=== PATIENT | male | born 1990 | race Two or more races ===

== ENCOUNTER 2019-11-01 07:12 | Inpatient (IN) | payer MEDICAID ==
[~2019-11-01] VITALS: Ht 177.8 cm; Wt 127.4 kg
[2019-11-01] MEDS ORDERED: SODIUM CHLORIDE 0.9% 1,000 ML IV ONE (07:43)
[2019-11-01] MEDS ORDERED: PROMETHAZINE HCL 25 MG/ML 1ML IV PRN (07:45)
[2019-11-01 08:09] LABS: Basophils # (auto) 0.1 10 ^3/uL (0-0.2); Basophils % (auto) 0.9 % (0.0-2.0); Eosinophils # (auto) 0.4 10 ^3/uL (0-0.8); Eosinophils % (auto) 4.2 % (0.0-7.0); Hematocrit 43.8 % (41.0-53.0); Hemoglobin 15.2 g/dL (13.5-17.5); Lymphocytes # (auto) 2.8 10 ^3/uL (0.4-5.4); Lymphocytes % (auto) 32.9 % (10.0-50.0); Mean Corpuscular Hemoglobin 29.2 pg (28.0-32.0); Mean Corpuscular Hgb Conc. 34.7 g/dL (32.0-36.0); Mean Corpuscular Volume 84.1 fL (80.0-100.0); Monocytes # (auto) 0.6 10 ^3/uL (0-1.3); Monocytes % (auto) 7.5 % (0.0-12.0); Neutrophils # (auto) 4.7 10 ^3/uL (1.6-8.6); Neutrophils % (auto) 54.5 % (37.0-80.0); Nucleated Red Blood Cells % 0.4 %; Platelet Count (auto) 261 10^3/uL (140-450); Red Blood Cells 5.21 10^6/uL (4.5-5.90); Red Cell Distribution Width 13.8 % (11.8-14.3); White Blood Cell 8.6 10^3/uL (4.4-10.8)
[2019-11-01 08:23] LABS: Albumin 3.5 g/dL (3.4-5.0); Calcium 8.3 mg/dL (8.5-10.1); Magnesium 2.5 mg/dL (1.6-2.6); Potassium 4.2 mmol/L (3.5-5.1)
[2019-11-01 08:26] LABS: BUN/Creatinine Ratio 17.9; Bilirubin, Total 0.4 mg/dL (0.2-1.0); Total Protein 7.5 g/dL (6.4-8.2)
[2019-11-01 09:18] LABS: Urine Bacteria FEW /hpf (None Seen); Urine Blood Negative /uL (Negative); Urine Specific Gravity 1.019 (1.001-1.035); Urine WBC <1 /hpf (0 - 3)
[2019-11-01 09:35] LABS: Alcohol, Urine < 3.0 mg/dL (0-5); Amphetamine Screen, Urine NEGATIVE (NEGATIVE); Barbiturate Scree,Urine NEGATIVE (NEGATIVE); Benzodiazephine Screen, Urine NEGATIVE (NEGATIVE); Cannabinoid Screen, Urine POSITIVE (NEGATIVE); Cocaine Screen, Urine NEGATIVE (NEGATIVE); Opiate Scree,Urine NEGATIVE (NEGATIVE); Phencyclidine Screen, Urine NEGATIVE (NEGATIVE)
[2019-11-01] MEDS: LACTATED RINGER'S 1,000 ML IV SCH (16:29)
--- NOTE | 2019-11-01 17:30 | NUR ---
[facility] admit from [facility],PAT[facility] admitted to [facility] after SBAR received. Patient oriented to Tracy Shin, primary RN, unit, room, bed, and unit policies regarding patient care and visiting hours. Patient weighed by bedscale and encouraged to call if they need something. All questions and concerns addressed, patient verbalized understanding. IV fluids continued as ordered. No s/s of acute distress or sob noted. VSS. Patient's at bedside. Will cont to monitor
[2019-11-01] MEDS: ONDANSETRON HCL 4 MG/2 ML VIAL IV PRN (17:59)
[2019-11-01] MEDS: MORPHINE SULF INJ 2 MG/ML SYRINGE 1ML IV PRN (17:59)
[2019-11-01 18:00] VITALS: BP 133/69
--- NOTE | 2019-11-01 19:05 | NUR ---
Patient care endorsed endorsed care to Trisha higgins. Patient resting comfortably in bed denies pain at this time. Call light within reach. Patient's at bedside
--- NOTE | 2019-11-01 19:38 | NUR ---
Opening Shift Note Assumed care of patient, awake and alert, resting comfortably in bed, family at bedside. No S/S of distress/SOB or pain. Instructed on POC and to call for assist PRN, will continue to monitor for changes Q1hr and PRN.
[2019-11-01] MEDS: PANTOPRAZOLE 40 MG/10 ML VIAL INJ IV SCH (21:46)
--- NOTE | 2019-11-01 21:47 | NUR ---
PAIN ASSESSMENT/FAMILY AT BEDSIDE ASKED PATIENT WHAT HIS PAIN LEVEL IS, PATIENT REPORTED PAIN AT A 6/10, HE DID NOT REQUEST ANY PAIN MEDICATION. PATIENT STATED TOLERABLE PAIN LEVEL IS 'ABOUT A 9 OR 10 OUT OF 10'. PATIENT EDUCATED REGARDING PAIN MANAGEMENT AND TO NOTIFY NURSE IF PAIN INCREASES. WILL CONTINUE TO MONITOR AND ASSESS FOR PAIN. PATIENT FAMILY AT BEDSIDE, INFORMED PATIENT AND VISITORS REGARDING VISITING HOURS, VISITOR VERBALIZED UNDERSTANDING.
[2019-11-01 21:52] VITALS: BP 124/76
[2019-11-02] MEDS: LACTATED RINGER'S 1,000 ML IV SCH ×3 (02:02→22:00)
[2019-11-02 04:57] LABS: Basophils # (auto) 0.1 10 ^3/uL (0-0.2); Eosinophils # (auto) 0.4 10 ^3/uL (0-0.8); Eosinophils % (auto) 4.4 % (0.0-7.0); Hematocrit 42.9 % (41.0-53.0); Lymphocytes # (auto) 3.6 10 ^3/uL (0.4-5.4); Lymphocytes % (auto) 38.2 % (10.0-50.0); Mean Corpuscular Hemoglobin 29.3 pg (28.0-32.0); Mean Corpuscular Hgb Conc. 34.8 g/dL (32.0-36.0); Mean Corpuscular Volume 84.1 fL (80.0-100.0); Monocytes # (auto) 0.6 10 ^3/uL (0-1.3); Monocytes % (auto) 6.2 % (0.0-12.0); Neutrophils # (auto) 4.8 10 ^3/uL (1.6-8.6); Neutrophils % (auto) 50.2 % (37.0-80.0); Nucleated Red Blood Cells % 0.2 %; Platelet Count (auto) 259 10^3/uL (140-450); Red Blood Cells 5.11 10^6/uL (4.5-5.90); Red Cell Distribution Width 13.8 % (11.8-14.3); White Blood Cell 9.6 10^3/uL (4.4-10.8)
[2019-11-02] MEDS: MORPHINE SULF INJ 2 MG/ML SYRINGE 1ML IV PRN ×2 (05:04→16:59)
[2019-11-02] MEDS: ONDANSETRON HCL 4 MG/2 ML VIAL IV PRN (05:04)
[2019-11-02 05:16] LABS: Albumin 3.4 g/dL (3.4-5.0); Calcium 8.5 mg/dL (8.5-10.1)
[2019-11-02 05:20] VITALS: BP 125/69
[2019-11-02 05:21] LABS: BUN/Creatinine Ratio 12.5; Bilirubin, Total 0.5 mg/dL (0.2-1.0); Total Protein 6.8 g/dL (6.4-8.2)
[2019-11-02 08:44] VITALS: BP 114/52
--- NOTE | 2019-11-02 09:00 | NUR ---
ROUNDS DONE PATIENT RESTING IN BED.
[2019-11-02] MEDS: PANTOPRAZOLE 40 MG/10 ML VIAL INJ IV SCH ×2 (09:44→21:59)
[2019-11-02] MEDS ORDERED: traMADol HCL 50 MG TAB PO PRN (10:30)
--- NOTE | 2019-11-02 10:30 | NUR ---
DR SINGH WENT TO TALK TO PATIENT, DR SINGH EXPLAINED PLAN OF CARE, PATIENT WILL HAVE CLEAR LIQUIDS NAD NPO AFTER MIDNIGHT FOR EXAM.
[2019-11-02 11:37] LABS: INR 1.01 (0.9-1.15)
--- NOTE | 2019-11-02 12:27 | NUR ---
PATIENT ALERT AND ORIENTED, FAMILY AT BEDSIDE, PLAN OF CARE EXPLAINED TO PATIENT. PATIENT DENIES PAIN OR DISCOMFORT.
[2019-11-02 13:00] VITALS: BP 141/74
--- NOTE | 2019-11-02 13:56 | NUR ---
ROUNDS PERFORMED. CHECKED IV
[2019-11-02 16:58] VITALS: BP 146/79
--- NOTE | 2019-11-02 18:02 | NUR ---
Medicated patient for pain. He is sitting up on a chair, no sob noted.
[2019-11-02 22:00] VITALS: BP 136/71
--- NOTE | 2019-11-03 02:39 | NUR ---
RESTING WITH EYES CLOSED;RESP EVEN UNLAB WITH CALL LIGHT IN REACH.
[2019-11-03 05:51] VITALS: BP 112/71
[2019-11-03] MEDS: ONDANSETRON HCL 4 MG/2 ML VIAL IV PRN (06:08)
--- NOTE | 2019-11-03 07:30 | NUR ---
Opening Shift Note Assumed care of patient, who is alert and oriented x4. No S/S of distress/SOB or pain. PIV to left AC is patent and intact. Bed is low, locked with 2x side rails up. Call light is within reach. Instructed on POC and to call for assist PRN, will continue to monitor for changes Q1hr and PRN.
[2019-11-03 08:00] VITALS: BP 125/90
[2019-11-03] MEDS: LACTATED RINGER'S 1,000 ML IV SCH (08:00)
[2019-11-03 09:00] VITALS: BP 125/79
--- NOTE | 2019-11-03 09:10 | NUR ---
Pre-Op Patient taken down to pre-op for scheduled EGD with MD Enciso. PIV asymptomatic, patent and intact. No distress noted on departure.
[2019-11-03] MEDS ORDERED: NALOXONE HCL 0.4 MG/ML VIAL IV PRN (09:30)
[2019-11-03] MEDS ORDERED: HYDROmorphone HCL 2 MG/ML VL IV PRN (09:30)
[2019-11-03] MEDS ORDERED: ONDANSETRON HCL 4 MG/2 ML VIAL IV PRN (09:30)
[2019-11-03] MEDS ORDERED: MIDAZOLAM HCL 1MG/1ML-2 ML VIAL ONE (09:35)
[2019-11-03] MEDS ORDERED: diphenhdrAMINE HCL 50 MG/1 ML VL ONE (09:36)
[2019-11-03] MEDS ORDERED: GLYCOPYRROLATE 0.2 MG/ML 1ML VIAL ONE (09:36)
[2019-11-03] MEDS ORDERED: PROPOFOL 10 MG/ML 20 ML IV ONE (09:38)
[2019-11-03] MEDS ORDERED: LIDOCAINE 1% (LOCAL ANESTH.) PF 5ml SDV ONE (09:38)
[2019-11-03] MEDS: PANTOPRAZOLE 40 MG/10 ML VIAL INJ IV SCH (10:00)
--- NOTE | 2019-11-03 10:34 | NUR ---
Back from procedure Patient back from EGD. No distress noted upon return. Will continue to monitor.
--- NOTE | 2019-11-03 11:16 | NUR ---
NUTRITION CONSULT/ASSESSMENT NOTES Please refer to link notes of nutrition screen form filed under the intervention section of the plan of care for further details. Est. Needs based on AdBW (88 kg): 1750 kcal to 2200 kcal (20-25 kcal/kgAdBW), 88 gms to 106 gms pro (1.0-1.2 gms/kgAdBW). Will continue to monitor pertinent labs and reassess nutrient needs prn Thank you for this consult. Addendum: 11/03/19 at [address] Amended: Links added.
[2019-11-03 13:00] VITALS: BP 121/65
[2019-11-03] MEDS: MORPHINE SULF INJ 2 MG/ML SYRINGE 1ML IV PRN (13:22)
[2019-11-03 13:30] VITALS: BP 121/65
--- NOTE | 2019-11-03 14:30 | NUR ---
Tar Distillation Supervisor Tar Distillation Supervisor at bedside.
--- NOTE | 2019-11-03 15:16 | NUR ---
Discharge instructions given as ordered. Encourage to follow up with PMD as instructed. All questions and concerns addressed. Patient verbalized understanding. IV removed with catheter intact, pressure dressing applied. Telemetry unit returned to ICU. Patient taken to vehicle via wheelchair with all personal belongings, accompanied by staff and family member. No distress noted at time of departure.
== END 2019-11-03 15:16 | disposition home or self-care (01) | DRG 282 ==
LOC: ER 07:12 → OVERFLOW 07:13 → CENTRAL 17:09
PROVIDERS: ADMIT Nurse Practitioner Acute Care; ATTEND Internal Medicine
PROC: 0DJ08ZZ Inspection of Upper Intestinal Tract, Via Natural or Artificial Opening Endoscopic (ICD-10-PCS; principal; 2019-11-03 09:39)
DX: K85.90 Acute pancreatitis without necrosis or infection, unspecified (principal); K76.0 Fatty (change of) liver, not elsewhere classified; E66.01 Morbid (severe) obesity due to excess calories; F17.210 Nicotine dependence, cigarettes, uncomplicated; F12.10 Cannabis abuse, uncomplicated; K92.1 Melena; Z88.8 Allergy status to other drugs, medicaments and biological substances; Z68.41 Body mass index [BMI] 40.0-44.9, adult; Z87.11 Personal history of peptic ulcer disease
CPT/HCPCS: 36415; 43235; 71045; 74176; 76705; 80053; 80061; 80307; 81001; 83690; 83735; 85025; 85610; 96374; C9113; G0378; J2250; J2405; J2704

== ENCOUNTER 2021-03-27 20:00 | Emergency (ER) | payer MEDICAID ==
[~2021-03-27] VITALS: Ht 177.8 cm; Wt 125.2 kg
[2021-03-27 21:29] LABS: Basophils # (auto) 0.1 10 ^3/uL (0-0.2); Eosinophils # (auto) 0.4 10 ^3/uL (0-0.8); Hematocrit 46.8 % (41.0-53.0); Hemoglobin 16.4 g/dL (13.5-17.5); Lymphocytes % (auto) 30.3 % (10.0-50.0); Mean Corpuscular Hemoglobin 29.5 pg (28.0-32.0); Mean Corpuscular Hgb Conc. 35.1 g/dL (32.0-36.0); Monocytes # (auto) 1.2 10 ^3/uL (0-1.3); Monocytes % (auto) 9.3 % (0.0-12.0); Neutrophils # (auto) 7.4 10 ^3/uL (1.6-8.6); Neutrophils % (auto) 56.4 % (37.0-80.0); Nucleated Red Blood Cells % 0.1 %; Red Blood Cells 5.58 10^6/uL (4.5-5.90); White Blood Cell 13.1 10^3/uL (4.4-10.8)
[2021-03-27 21:44] LABS: Albumin 3.7 g/dL (3.4-5.0); Calcium 8.7 mg/dL (8.5-10.1); Potassium 4.1 mmol/L (3.5-5.1)
[2021-03-27 21:47] LABS: BUN/Creatinine Ratio 23.4; Bilirubin, Total 0.3 mg/dL (0.2-1.0); Total Protein 8.2 g/dL (6.4-8.2)
[2021-03-27 22:12] LABS: Urine Bacteria NONE SEEN /hpf (None Seen); Urine Blood Negative /uL (Negative); Urine Mucus FEW (None Seen); Urine Specific Gravity 1.032 (1.001-1.035); Urine WBC 14 /hpf (0 - 3)
[2021-03-27 22:18] VITALS: BP 148/95
== END 2021-03-27 22:19 | disposition home or self-care (01) ==
LOC: ER 20:00
DX: L03.116 Cellulitis of left lower limb (principal); L03.115 Cellulitis of right lower limb; F17.210 Nicotine dependence, cigarettes, uncomplicated; F12.10 Cannabis abuse, uncomplicated; F15.10 Other stimulant abuse, uncomplicated; Z91.013 Allergy to seafood
CPT/HCPCS: 36415; 80053; 81001; 85025

== ENCOUNTER 2021-05-27 17:51 | Emergency (ER) | payer MEDICAID ==
[~2021-05-27] VITALS: Ht 177.8 cm; Wt 117.9 kg
[2021-05-27 21:30] VITALS: BP 157/84
== END 2021-05-27 22:08 | disposition home or self-care (01) ==
LOC: ER 17:51
DX: L02.811 Cutaneous abscess of head [any part, except face] (principal); H92.03 Otalgia, bilateral; R53.83 Other fatigue; F17.210 Nicotine dependence, cigarettes, uncomplicated
CPT/HCPCS: 70450

== ENCOUNTER 2021-05-29 13:28 | Emergency (ER) | payer MEDICAID ==
[~2021-05-29] VITALS: Ht 177.8 cm; Wt 117.9 kg
[2021-05-29 13:30] VITALS: BP 129/82
[2021-05-29] MEDS ORDERED: IBUPROFEN 800 MG TAB PO ONE (14:30)
[2021-05-29] MEDS ORDERED: cefTRIAXone SOD 1,000 MG VL IM ONE (14:30)
== END 2021-05-29 14:48 | disposition home or self-care (01) ==
LOC: ER 13:29
DX: L02.821 Furuncle of head [any part, except face] (principal); F17.210 Nicotine dependence, cigarettes, uncomplicated; F12.10 Cannabis abuse, uncomplicated; F15.10 Other stimulant abuse, uncomplicated; Z91.013 Allergy to seafood
CPT/HCPCS: 96372; 99283; J0696

== ENCOUNTER 2021-05-31 17:22 | Emergency (ER) | payer MEDICAID ==
[~2021-05-31] VITALS: Ht 177.8 cm; Wt 117.9 kg
[2021-05-31 19:04] VITALS: BP 141/91
== END 2021-05-31 22:27 | disposition home or self-care (01) ==
LOC: ER 17:23
DX: L02.811 Cutaneous abscess of head [any part, except face] (principal); F17.210 Nicotine dependence, cigarettes, uncomplicated; Z88.8 Allergy status to other drugs, medicaments and biological substances; Z91.013 Allergy to seafood
CPT/HCPCS: 10060; 36415; 83036

== ENCOUNTER 2021-06-01 17:21 | Emergency (ER) | payer MEDICAID ==
[~2021-06-01] VITALS: Ht 177.8 cm; Wt 117.9 kg
[2021-06-01 20:06] VITALS: BP 140/101
== END 2021-06-01 22:02 | disposition home or self-care (01) ==
LOC: ER 17:21
DX: L02.811 Cutaneous abscess of head [any part, except face] (principal); E66.9 Obesity, unspecified; F17.210 Nicotine dependence, cigarettes, uncomplicated; Z68.37 Body mass index [BMI] 37.0-37.9, adult; Z88.8 Allergy status to other drugs, medicaments and biological substances; Z91.013 Allergy to seafood
CPT/HCPCS: 96372

== ENCOUNTER 2021-06-03 15:23 | Emergency (ER) | payer MEDICAID ==
[~2021-06-03] VITALS: Ht 177.8 cm; Wt 117.9 kg
[2021-06-03 19:28] VITALS: BP 149/103
== END 2021-06-03 19:45 | disposition home or self-care (01) ==
LOC: ER 15:23
DX: L02.811 Cutaneous abscess of head [any part, except face] (principal); F17.210 Nicotine dependence, cigarettes, uncomplicated; F12.10 Cannabis abuse, uncomplicated; F15.10 Other stimulant abuse, uncomplicated; F11.10 Opioid abuse, uncomplicated; Z88.8 Allergy status to other drugs, medicaments and biological substances; Z91.013 Allergy to seafood

== ENCOUNTER → 2021-06-05 | Emergency (ER) | payer MEDICAID ==
[~2021-06-05] VITALS: Ht 177.8 cm; Wt 117.9 kg
[2021-06-05 22:50] VITALS: BP 130/84
== END | disposition home or self-care (01) ==
LOC: ER 21:37
DX: L02.811 Cutaneous abscess of head [any part, except face] (principal); F17.210 Nicotine dependence, cigarettes, uncomplicated; Z88.8 Allergy status to other drugs, medicaments and biological substances; Z91.013 Allergy to seafood

== ENCOUNTER 2022-10-22 09:40 | Emergency (ER) | payer MEDICAID ==
[~2022-10-22] VITALS: Ht 177.8 cm; Wt 123.0 kg
[2022-10-22 09:47] VITALS: BP 139/95
[2022-10-22] MEDS ORDERED: KETOROLAC TROMETH 60MG/2ML VIAL IM ONE (11:45)
[2022-10-22] MEDS ORDERED: IBUP800T27 PO (11:53)
[2022-10-22] MEDS ORDERED: AUG875T PO (11:53)
== END 2022-10-22 12:10 | disposition home or self-care (01) ==
LOC: ER 09:40
DX: H66.93 Otitis media, unspecified, bilateral (principal); R51.9 Headache, unspecified; F17.210 Nicotine dependence, cigarettes, uncomplicated; Z79.1 Long term (current) use of non-steroidal anti-inflammatories (NSAID); Z79.2 Long term (current) use of antibiotics; Z88.8 Allergy status to other drugs, medicaments and biological substances; Z91.013 Allergy to seafood
CPT/HCPCS: 70450; 96372; 99285; J1885